=== PATIENT | male | born 1985 | race African-American/Black ===

== ENCOUNTER 2017-09-07 13:20 | Emergency (ER) | payer SELFPAY ==
[2017-09-07 13:34] VITALS: BP 129/86
--- NOTE | 2017-09-07 13:34 | ED Physician Documentation ---
General Adult - HISTORIAN Historian: patient - HPI Stated Complaint: dental pain Chief Complaint: General Adult Onset: days ago Timing: still present Severity: moderate Further Comments: yes (Pt is a 32 yo male with dental pain. Pt has a fractured moral on the lower right that has been breaking off in small pieces for a few weeks. Pt now has pain and swelling. No fever.) - ROS CONST: no problems EYES/ENT: none CVS/RESP: none GI/: none MS/SKIN/LYMPH: none - PAST HX Past History: none Other History: none Allergies/Adverse Reactions: Allergies Allergy/AdvReac Type Severity Reaction Status Date / Time No Known Allergies Allergy Verified 09/07/17 13:29 Home Medications: Ambulatory Orders Medication Instructions Recorded NK [NK] 09/07/17 - SOCIAL HX Smoking History: cigarettes - FAMILY HX Family History: No - REVIEWED ASSESSMENTS Nursing Assessment Reviewed: Yes Vitals Reviewed: Yes Progress - Progress Progress: Rx Penicillin VK 500 mg. Take one tablet by mouth every 8 hrs for 10 days. Rx [place] (5/325). Take one or two tablets by mouth every 4 to 6 hrs as needed for moderate to severe pain. Follow up with dentist as soon as possible. General Adult Physical Exam - PHYSICAL EXAM GENERAL APPEARANCE: moderate distress EENT: other (poor dentition, fractured molar, lower right, mild facial swelling c/w abscess) NECK: normal inspection, supple RESPIRATORY: no resp distress BACK: normal inspection SKIN: warm/dry, normal color EXTREMITIES: non-tender, normal range of motion NEURO: oriented X3, motor nml, sensation nml Discharge Clincal Impression: dental pain Referrals: Primary Doctor,No [Primary Care Provider] - Condition: Good Disposition: 01 HOME, SELF-CARE Decision to Admit: NO Decision Time: 13:43
== END 2017-09-07 13:54 | disposition home or self-care (01) ==
LOC: ED 13:20
DX: K08.89 Other specified disorders of teeth and supporting structures (principal)
CPT/HCPCS: 99282